=== PATIENT | female | born 1965 | race Caucasian/White ===

== ENCOUNTER 2022-12-30 11:47 | Outpatient (OUT) | payer OTHER, SELFPAY ==
[2022-12-30 12:44] LABS: Anion Gap 13.9; BUN Creatinine Ratio 15.3; Calcium 9.2 mg/dL (8.5-10.1); Carbon Dioxide 27.4 mmol/L (21.0-32.0); Chloride 105 mmol/L (98-107); Cholesterol 166 mg/dL (<=200); Estimated GFR (African America >60 (>=60); Estimated GFR (Non-African Ame 59 (>=60); Glucose 100 mg/dL (74-106); HDL Cholesterol 56 mg/dL (40-60); LDL Cholesterol Calculated 97.2 mg/dL; Potassium 4.3 mmol/L (3.5-5.1); Sodium 142 mmol/L (136-145); Thyroid Stimulating Hormone 0.989 uIU/mL (0.358-3.740); Triglycerides 64 mg/dL (<=150); VLDL CHOLESTEROL 12.8 mg/dL
== END 2022-12-30 11:48 | disposition home or self-care (01) ==
PROVIDERS: PCP Specialist
DX: E03.9 Hypothyroidism, unspecified (principal); I10 Essential (primary) hypertension; Z13.6 Encounter for screening for cardiovascular disorders
CPT/HCPCS: 36415; 80048; 80061; 84443

== ENCOUNTER 2023-01-13 12:10 | Outpatient (OUT) | payer OTHER, SELFPAY ==
[2023-01-17 15:11] LABS: Serotonin, Serum 5 ng/mL (31-207)
== END 2023-01-13 12:13 | disposition home or self-care (01) ==
PROVIDERS: PCP Specialist
DX: Z86.59 Personal history of other mental and behavioral disorders (principal)
CPT/HCPCS: 36415; 84260